=== PATIENT | female | born 1975 | race Two or more races ===

== ENCOUNTER 2024-09-25 01:35 | Inpatient (IN) | payer MEDICAID, OTHER ==
[~2024-09-25] VITALS: Ht 165.1 cm; Wt 87.3 kg
[2024-09-25] MEDS ORDERED: LABETALOL HCL 20 MG/4 ML VL IV ONE (02:00)
--- NOTE | 2024-09-25 02:15 | DVH ---
CHEST RADIOGRAPH Indication: cp Technique: Single frontal view of the chest was obtained COMPARISON: None FINDINGS: Lines and Tubes: None Lungs: Clear Pleura: No effusion. No pneumothorax. Cardiomediastinal contours: Unremarkable Bones: Unremarkable IMPRESSION: 1. No acute disease.
[2024-09-25 02:32] LABS: Basophils # (auto) 0.1 10 ^3/uL (0-0.2); Basophils % (auto) 0.5 % (0.0-2.0); Eosinophils # (auto) 0.1 10 ^3/uL (0-0.8); Eosinophils % (auto) 0.6 % (0.0-7.0); Hematocrit 42.3 % (36.0-46.0); Hemoglobin 14.2 g/dL (12.2-16.2); Mean Corpuscular Hemoglobin 30.9 pg (28.0-32.0); Mean Corpuscular Hgb Conc. 33.6 g/dL (32.0-36.0); Mean Corpuscular Volume 91.8 fL (80.0-100.0); Monocytes # (auto) 0.5 10 ^3/uL (0-1.3); Monocytes % (auto) 4.8 % (0.0-12.0); Neutrophils # (auto) 7.8 10 ^3/uL (1.6-8.6); Neutrophils % (auto) 68.1 % (37.0-80.0); Platelet Count (auto) 307 10^3/uL (140-450); Red Blood Cells 4.61 10^6/uL (4.0-5.20); Red Cell Distribution Width 14.7 % (11.8-14.3); White Blood Cell 11.4 10^3/uL (4.4-10.8)
--- NOTE | 2024-09-25 02:36 | ED.PDOC ---
HPI Comments 49-year-old female complaining of high blood pressure. Patient states she took her blood pressure at home in his 160/104. Says she went to urgent care months back and was prescribed amlodipine 10 mg and lisinopril 20 mg. States she has not have a primary care doctor. She has been taking the medications as prescribed but states she has noticed no significant improvement. States today she started feeling mild/like chest pain as well. Denies any shortness of breath. No headaches today. Nothing makes it better, nothing makes it worse. Chief Complaint: High Blood Pressure Time Seen by MD: 01:41 Reviewed Notes: Nurses Notes Information Source: Patient Mode of Arrival: Ambulatory Severity: Moderate Past Medical History PAST MEDICAL HISTORY: HTN Surgical History: Denies all surgeries DOCUMENT MANAGEMENT TECHNICIAN History: No Pertinent DOCUMENT MANAGEMENT TECHNICIAN History Constitutional: denies: chills, diaphoresis, fatigue, fever, malaise, sweats, weakness, others EENTM: denies: blurred vision, double vision, ear bleeding, ear discharge, ear drainage, ear pain, ear ringing, eye pain, eye redness, hearing loss, mouth pain, mouth swelling, nasal discharge, nose bleeding, nose congestion, nose pain, photophobia, tearing, throat pain, throat swelling, voice changes, others Respiratory: denies: cough, hemoptysis, orthopnea, SOB at rest, shortness of breath, SOB with excertion, stridor, wheezing, others Cardiovascular: reports: chest pain; denies: dizzy spells, diaphoresis, Dyspnea on exertion, edema, irregular heart beat, left arm pain, lightheadedness, palpitations, PND, syncope, others Gastrointestinal: denies: abdomen distended, abdominal pain, blood streaked bowels, constipated, diarrhea, dysphagia, difficulty swallowing, hematemesis, melena, nausea, poor appetite, poor fluid intake, rectal bleeding, rectal pain, vomiting, others Genitourinary: denies: abnormal vagina bleeding, burning, dyspareunia, dysuria, flank pain, frequency, hematuria, incontinence, pain, , vagina discharge, urgency, others Neurological: denies: dizziness, fainting, headache, left sided numbness, left sided weakness, numbness, paresthesia, pre-existing deficit, right sided numbness, right sided weakness, seizure, speech problems, tingling, tremors, weakness, others Musculoskeletal: denies: back pain, gout, joint pain, joint swelling, muscle pain, muscle stiffness, neck pain, others Integumetry: denies: bruises, change in color, change in hair/nails, dryness, laceration, lesions, lumps, rash, wounds, others Allergic/Immunocompromised: denies: Difficulty Healing, Frequent Infections, Hives, Itching, others Hematologic/Lymphatic: denies: anemia, blood clots, easy bleeding, easy bruising, swollen glands, others Physical Exam General Appearance: No Apparent Distress, Normal HEENT: Normal ENT Inspection, Pharynx Normal, TMs Normal Neck: Full Range of Motion, Non-Tender, Normal, Normal Inspection Respiratory: Chest Non-Tender, Lungs Clear, No Accessory Muscle Use, No Respiratory Distress, Normal Breath Sounds Cardiovascular: No Edema, No JVD, No Murmur, No Gallop, Normal Peripheral Pulses, Tachycardia Breast Exam: Deferred Gastrointestinal: No Organomegaly, Non Tender, No Pulsatile Mass, Normal Bowel Sounds, Soft Genitalia: Deferred Pelvic: Deferred Rectal: Deferred Extremities: No calf tenderness, Normal capillary refill, Normal inspection, Normal range of motion, Non-tender, No pedal edema Musculoskeletal : Apperance: Normal Neurologic: Alert, physical optics teacher II-XII nml as Tested, No Motor Deficits, Normal Affect, Normal Mood, No Sensory Deficits Cerebellar Function: Normal Reflexes: Normal Skin: Dry, Normal Color, Warm Lymphatic: No Adenopathy Was a procedure done? Was a procedure done?: No CP Differential Dx Differential Diagnosis: Angina, Anxiety / Panic Attack, Atrial Dysrhythmia, NV, Sinus Tachycardia X-Ray, Labs, Meds, VS Vital Signs Date Time Temp Pulse Resp B/P (MAP) Pulse Ox O2 Delivery O2 Flow Rate FiO2 09/25/24 01:51 124 09/25/24 01:50 98.2 125 18 164/109 (127) 96 98.2 Lab Test 09/25/24 02:13 Range/Units White Blood Count Pending Red Blood Count Pending Hemoglobin Pending Hematocrit Pending Mean Corpuscular Volume Pending Mean Corpuscular Hemoglobin Pending Mean Corpuscular Hemoglobin Concent Pending Red Cell Distribution Width Pending Platelet Count Pending Mean Platelet Volume Pending Neutrophils (%) (Auto) Pending Lymphocytes (%) (Auto) Pending Monocytes (%) (Auto) Pending Basophils (%) (Auto) Pending Neutrophils # (Auto) Pending Lymphocytes # (Auto) Pending Monocytes # (Auto) Pending Sodium Level Pending Potassium Level Pending Chloride Level Pending Carbon Dioxide Level Pending Anion Gap Pending Blood Urea Nitrogen Pending Creatinine Pending Glomerular Filtration Rate Calc Pending BUN/Creatinine Ratio Pending Serum Glucose Pending Calcium Level Pending Troponin I High Sensitivity Pending X-Ray, Labs, Meds, VS Comment Imaging: X-rays and CT scans were reviewed and interpreted by this provider, imaging shows no fractures and no pathological disease. Pending radiology review. Laboratory: Labs reviewed and interpreted by this provider. Patient has prior medical visits reviewed. Med reconciliation performed Vital signs reviewed Patient will be admitted for uncontrolled hypertension and tachycardia Recommend cardiology consult in the morning Time of 1ST Reevaluation: 02:36 Reevaluation 1ST: Unchanged Patient Education/Counseling: Diagnosis, Treatment Family Education/Counseling: Diagnosis, Treatment Assigned to Dr. Reyes Change of Shift?: Yes SEPSIS Sepsis Screen Date sepsis recognized/suspect: Sep 25, 2024 Time Sepsis recognized/suspect: 144 Recent Procedure: No On Antibiotic Therapy: No Respiratory Rate >20: No Heart Rate >90: No Temp<36 C (96.8 F) or >38.3 C: No SBP <90 or MAP <65 mmHG: No New Acute Mental Status Change: No Is the patient on CPAP, BIPAP,: No Physician Orders Complete Blood Count (09/25/24 01:47) Basic Metabolic Panel (09/25/24 01:47) Troponin-I Hs (09/25/24 01:47) Urinalysis (09/25/24 01:47) Chest Xray 1 View (09/25/24 01:47) Electrocardigram (09/25/24 01:47) Troponin-I Hs (09/25/24 02:47) Troponin-I Hs (09/25/24 04:47) Electrocardigram (09/25/24 02:47) Electrocardigram (09/25/24 04:47) Vital Signs Date Time Temp Pulse Resp B/P (MAP) Pulse Ox O2 Delivery O2 Flow Rate FiO2 09/25/24 01:51 124 09/25/24 01:50 98.2 125 18 164/109 (127) 96 98.2 Laboratory Tests Test 09/25/24 02:13 White Blood Count Pending Departure 1 Departure Time of Disposition: 02:34 Impression: Primary Impression: Tachycardia Additional Impression: Hypertensive urgency Disposition: 09 ADMITTED INPATIENT Condition: Stable Discharged With: Self Critical Care Note Critical Care Time?: No Stability Stability form required: No Heart Score Heart Score: Heart Score Response (Comments) Value History Slightly Suspicious 0 EKG Normal 0 Age 45-64 1 Risk Factors No known risk factors 0 Troponin Normal limit 0 Total 1 HEMANT GALLARDO Sep 25, 2024 02:36
[2024-09-25 02:42] LABS: Chloride 104 mmol/L (98-107); Potassium 3.9 mmol/L (3.5-5.1); Sodium 141 mmol/L (136-145)
[2024-09-25 02:43] LABS: Anion Gap 11 (5-15); Calcium 10.2 mg/dL (8.7-10.4); Carbon Dioxide 26 mmol/L (20-31)
[2024-09-25 02:48] LABS: BUN/Creatinine Ratio 27.1 (10.0-20.0); Blood Urea Nitrogen 19 mg/dL (9-23)
[2024-09-25 02:49] LABS: Glucose 136 mg/dL (74-106)
[2024-09-25 03:25] VITALS: PULSE 82; RESP 18; O2SAT 98
[2024-09-25] MEDS: diphenhdrAMINE HCL 50 MG/1 ML VL IV ONE (04:00)
[2024-09-25 04:57] LABS: Urine Bacteria None Seen /hpf (None Seen)
[2024-09-25] MEDS: LISINOPRIL 5 MG TAB PO ONE (05:02)
[2024-09-25 05:12] LABS: Urine Blood 3+ /uL (Negative); Urine Clarity Turbid (Clear); Urine Color Light-Brown (Yellow); Urine Protein, UAD TRACE (Negative); Urine Specific Gravity 1.015 (1.001-1.035); Urine Squamous Epithelial Cell FEW /hpf (<5); Urine Urobilinogen Normal (Negative); Urine WBC 7 /HPF (0-5)
[2024-09-25 05:13] LABS: Protein, Urine 26.3 mg/dL (1-14)
[2024-09-25 05:16] LABS: Creatinine, Urine 48.05 mg/dL (30.0-125.0); Urine Protein/Creatinine Ratio 0.55
[2024-09-25 05:41] VITALS: BP 147/85
--- NOTE | 2024-09-25 05:53 | DVHHPRES ---
History of Present Illness Resident Creating Document: TAYOKAMRONJULIAN RESIDENT History of Present Illness Patient is a 49-year-old female with a past medical history of hypertension presented to the ED with a chief complaint of noticing high blood pressure at home. Patient reported that she was recently diagnosed with a blood pressure reports 6-8 months ago following which she has been on antihypertensive medications and currently he is on lisinopril 20 mg daily and amlodipine 10 mg daily. Today in the morning she noticed her blood pressure of 180/105. Reported of chest pressure in the right side, nonradiating which improved on its own. Patient denies any history of diabetes, no smoking or drug use, no alcohol use. Patient denies any significant family history of coronary artery disease. Initial 12 lead ECG showed sinus tachycardia without any significant ST-T changes, flattening of T-waves in V2 and V3. Troponin levels were within normal limits Review of Systems Review of Systems Patient seen and examined at the bedside Denies headache, blurred vision, chest pain, shortness of breath No other acute complaints Allergies: Uncoded Allergies: NKDA (Allergy, Unknown, 09/25/24) Medications Current Medications Medications Dose Ordered Sig/Ronit Route Start Time Stop Time Status Last Admin Dose Admin Lisinopril 20 mg DAILY PO 09/26/24 10:00 Amlodipine Besylate 10 mg DAILY PO 09/25/24 10:00 Exam Vital Signs Vital Signs Date Time Temp Pulse Resp B/P (MAP) Pulse Ox O2 Delivery O2 Flow Rate FiO2 09/25/24 05:02 146/78 09/25/24 04:46 104 09/25/24 03:25 98.1 18 98 98.1 09/25/24 03:25 Room Air* 0 21 Exam Gen - no pallor, no icterus, no cyanosis, no clubbing, no LAD, no edema . Skin - Patients skin is warm and dry. HEENT - normocephalic, atraumatic, moist mucous membranes. Neck - full ROM, no LAD, no JVD Pulmonary - B/L equal breath sounds, no crackles, no wheezing, no stridor. cardiovascular - regular S1,S2 heard, no added sounds, no murmurs heard. GI - soft, nontender abdomen. no hepatospleenomegaly. Bowel sounds normoactive Neurological - Patient is A/O X 3. Bilateral upper extremity strength 5/5, bilateral lower extremity strength 5/5, no facial droop, normal speech, no tremor, no sensory deficiets. Labs/Xrays Labs Test 09/25/24 04:54 09/25/24 03:30 09/25/24 02:13 Range/Units Urine Color Light-brown Yellow Urine Clarity Turbid H Clear Urine pH 6.0 5.0-9.0 Urine Specific [place] 1.015 1.001-1.035 Urine Protein Trace H Negative Urine Ketones 2+ H Negative Urine Blood 3+ H Negative /uL Urine Nitrite Negative Negative Urine Bilirubin Negative Negative Urine Urobilinogen Normal Negative mg/dL Urine Leukocyte Esterase 2+ Negative /uL Urine RBC 3030 0 - 4 /hpf Urine Microscopic WBC 7 H 0-5 /HPF Urine Squamous Epithelial Cells Few <5 /hpf Urine Bacteria None seen None Seen /hpf Urine Creatinine 48.05 30.0-125.0 mg/dL Urine Protein/Creatinine Ratio 0.55 Urine Glucose Normal Normal mg/dL Urine Total Protein 26.3 H 1-14 mg/dL Troponin I High Sensitivity 4 </=34 ng/L White Blood Count 11.4 H 4.4-10.8 10^3/uL Red Blood Count 4.61 4.0-5.20 10^6/uL Hemoglobin 14.2 12.2-16.2 g/dL Hematocrit 42.3 36.0-46.0 % Mean Corpuscular Volume 91.8 80.0-100.0 fL Mean Corpuscular Hemoglobin 30.9 28.0-32.0 pg Mean Corpuscular Hemoglobin Concent 33.6 32.0-36.0 g/dL Red Cell Distribution Width 14.7 H 11.8-14.3 % Platelet Count 307 140-450 10^3/uL Mean Platelet Volume 8.5 6.9-10.8 fL Neutrophils (%) (Auto) 68.1 37.0-80.0 % Lymphocytes (%) (Auto) 26.0 10.0-50.0 % Monocytes (%) (Auto) 4.8 0.0-12.0 % Eosinophils (%) (Auto) 0.6 0.0-7.0 % Basophils (%) (Auto) 0.5 0.0-2.0 % Neutrophils # (Auto) 7.8 1.6-8.6 10 ^3/uL Lymphocytes # (Auto) 3.0 0.4-5.4 10 ^3/uL Monocytes # (Auto) 0.5 0-1.3 10 ^3/uL Eosinophils # (Auto) 0.1 0-0.8 10 ^3/uL Basophils # (Auto) 0.1 0-0.2 10 ^3/uL Nucleated Red Blood Cells 0.0 % Sodium Level 141 136-145 mmol/L Potassium Level 3.9 3.5-5.1 mmol/L Chloride Level 104 98-107 mmol/L Carbon Dioxide Level 26 20-31 mmol/L Anion Gap 11 5-15 Blood Urea Nitrogen 19 9-23 mg/dL Creatinine 0.70 0.550-1.02 mg/dL Glomerular Filtration Rate Calc 105 >90 mL/min BUN/Creatinine Ratio 27.1 H 10.0-20.0 Serum Glucose 136 H 74-106 mg/dL Calcium Level 10.2 8.7-10.4 mg/dL Assessment/Plan Assessment/Plan Acute chest pain, rule out ACS Hypertensive crisis Uncontrolled hypertension with hypertensive heart disease - reviewed EKG showed no significant ST segment or T-wave changes, troponin levels were within normal limits - continued on lisinopril 20 mg and amlodipine 10 mg daily - echocardiogram pending - urine protein creatinine ratio pending to check for any hypertensive nephropathy PUD prophylaxis: Protonix Goals of care discussed with the patient for over 90 minutes. Full code Time spent: 33 minutes Plan discussed with Dr. Mitchell Plan discussed with: Patient My Orders Orders - CHRIST CR Procedure Category Date Status Time Admit ADMIT 09/25/24 Transmitted 04:37 Amlodipine Tablet PHA 09/25/24 In Process (Norvasc Tablet) 10:00 Echo 2d Mode Cardiac US 09/25/24 Logged DOP 04:37 Cardiac DIET 09/25/24 Transmitted Diet-2gna,Lofat,Lochol Breakfast Lisinopril Tablet PHA 09/26/24 In Process (Zestril Tablet) 10:00 Date of Service: Sep 25, 2024 Billing Provider: RAFAEL MITCHELL MD Common Visit Codes: 45673-BJZVRGC INP/OBS CARE (HIGH) Secondary Visit Codes: 91627-[id number] CARE PLAN 30 MINUTES CHRIST CR RESIDENT Sep 25, 2024 05:53
[2024-09-25] MEDS: PANTOPRAZOLE 40 MG TAB PO SCH (06:00)
[2024-09-25] MEDS ORDERED: ACETAMINOPHEN 500 MG TAB or CAP PO PRN (08:45)
[2024-09-25] MEDS ORDERED: HYDROcodone-ACET 5/325MG TAB PO PRN (08:45)
[2024-09-25] MEDS ORDERED: MORPHINE SULFATE INJ 2 MG/ml SYRG IV PRN (08:45)
[2024-09-25 09:24] LABS: Bilirubin, Direct 0.1 mg/dL (<0.3); Bilirubin, Total 0.6 mg/dL (0.2-1.0); Total Protein 7.9 g/dL (5.7-8.2)
[2024-09-25 09:25] LABS: INR 0.97 (0.9-1.15); Partial Thromboplastin Time 26.5 SEC (24.5-34.5); Prothrombin Time 10.3 sec (9.3-11.8)
[2024-09-25] MEDS ORDERED: MORPHINE SULFATE 4 MG/ML SYR/VIAL IV PRN (09:45)
[2024-09-25 10:02] LABS: Magnesium 2.1 mg/dL (1.6-2.6)
[2024-09-25] MEDS: amLODIPine BESYLATE 5 MG TAB PO SCH (10:05)
[2024-09-25 10:07] VITALS: BP 160/83; PULSE 90; RESP 20; TEMP 98.7; O2SAT 99
[2024-09-25 10:47] LABS: Amphetamine Screen, Urine Neg (NEGATIVE); Barbiturate Scree,Urine Neg (NEGATIVE); Benzodiazephine Screen, Urine Neg (NEGATIVE); Cannabinoid Screen, Urine Neg (NEGATIVE); Cocaine Screen, Urine Neg (NEGATIVE); Opiate Scree,Urine Neg (NEGATIVE); Phencyclidine Screen, Urine Neg (NEGATIVE)
--- NOTE | 2024-09-25 12:35 | ECG ---
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
[2024-09-25 16:06] VITALS: BP 111/67; PULSE 92; RESP 16; TEMP 98.4; O2SAT 98
--- NOTE | 2024-09-25 18:26 | DVHPNRES ---
Progress Note Date Seen: Sep 25, 2024 Resident Creating Document: SHIRA WELSH RESIDENT Medical Necessity Reason Pt with a Central, PICC or Fol: No Subjective Review of Systems Patient is a 49-year-old female with a past medical history of hypertension presented to the ED with a chief complaint of noticing high blood pressure at home. Patient reported that she was recently diagnosed with a blood pressure reports 6-8 months ago following which she has been on antihypertensive medications and currently he is on lisinopril 20 mg daily and amlodipine 10 mg daily. Today in the morning she noticed her blood pressure of 180/105. Reported of chest pressure in the right side, nonradiating which improved on its own. Patient denies any history of diabetes, no smoking or drug use, no alcohol use. Patient denies any significant family history of coronary artery disease. Initial 12 lead ECG showed sinus tachycardia without any significant ST-T changes, flattening of T-waves in V2 and V3. Troponin levels were within normal limits Home medications lisinopril 20, amlodipine 10 Patient seen and examined at the bedside. Denies chest pain. Echocardiogram pending. Objective vital signs Vital Sign Date Time Temp Pulse Resp B/P (MAP) Pulse Ox O2 Delivery O2 Flow Rate FiO2 09/25/24 16:06 98.4 92 16 111/67 (82) 98 98.4 09/25/24 07:58 Room Air* 0 21 medications Current Medications Medications Dose Ordered Sig/Ronit Route Start Time Stop Time Status Last Admin Dose Admin Lisinopril 20 mg DAILY PO 09/26/24 10:00 Amlodipine Besylate 10 mg DAILY PO 09/25/24 10:00 09/25/24 10:05 10 MG Pantoprazole Sodium 40 mg DAILY@0600 PO 09/25/24 06:00 Acetaminophen 500 mg Q4HPRN PRN PO 09/25/24 08:45 Acetaminophen/ Hydrocodone Bitart 1 tab Q4HPRN PRN PO 09/25/24 08:45 Morphine Sulfate 1 mg Q4HPRN PRN IV 09/25/24 08:45 UNV Morphine Sulfate 1 mg Q4HPRN PRN IV 09/25/24 09:45 Examination Patient lying in bed, in no acute distress General: Well-built, afebrile, palor, mucosae are moist Cardiovascular: Regular S1 and S2. No murmurs, gallops or rubs. No JVD elevation. No pedal edema Respiratory: Normal B/L air entry on room air. Clear lung sounds on auscultation Abdomen: Soft, nontender, nondistended, normoactive bowel sounds, no rebound tenderness, no organomegaly, no masses Genitourinary: Deferred MSK/skin: Mobilizes 4 limbs. Skin is dry and warm Neurological: No motor, no sensitive deficits, normal speech. Pupils are isocoric and reactive. Psych/Mental Status: A/Ox3 laboratory and microbiology Laboratory Tests 09/25/24 02:13 Test 09/25/24 02:13 Range/Units Serum Glucose 136 H 74-106 mg/dL Labs and/or images reviewed: Labs reviewed by me, Image(s) reviewed by me Problem List/Assessment/Plan Problem List/Assessment/Plan Acute chest pain, rule out ACS Hypertensive crisis Uncontrolled hypertension with hypertensive heart disease - reviewed EKG showed no significant ST segment or T-wave changes, troponin levels were within normal limits - continued on lisinopril 20 mg and amlodipine 10 mg daily - echocardiogram pending - urine protein creatinine ratio unremarkable Sepsis secondary to Acute cystitis IV ceftriaxone 1 g daily And bacteria culture ordered ? Thyroid disease Follow up with free T4 PUD prophylaxis: Protonix Plan discussed with patient, brother at bedside in which all questions have been answered Goals of care discussed for more than 20 minutes, full code status Case discussed with Dr. Ontiveros Plan discussed with: Patient My Orders My Orders Orders - SHIRA WELSH Procedure Category Date Status Time Acetaminophen Tab Or PHA 09/25/24 In Process Cap (Tylenol Tablet 08:45 Hydrocodone-Acet PHA 09/25/24 In Process 5/325mg Tab ([place] 08:45 Morphine Sulfate PHA 09/25/24 In Process Injection 09:45 SHIRA WELSH Sep 25, 2024 18:26
[2024-09-25] MEDS: ERGOCALCIFEROL 50,000 UNIT(1.25MG) CAP PO SCH (18:30)
[2024-09-25] MEDS: cefTRIAXone 1GM/50ML D5W 50 ML IV ONE (18:38)
[2024-09-25 21:00] VITALS: BP 126/73; PULSE 68; RESP 16; TEMP 98.3; O2SAT 98
[2024-09-26] VITALS (8 sets, daily range): BP systolic 98–129; BP diastolic 59–81; PULSE 58–76; RESP 13–18; TEMP 97.6–98.3; O2SAT 94–100
[2024-09-26 04:31] LABS: Calcium 9.1 mg/dL (8.7-10.4); Chloride 105 mmol/L (98-107); Potassium 3.7 mmol/L (3.5-5.1); Sodium 141 mmol/L (136-145)
[2024-09-26 04:32] LABS: Anion Gap 12 (5-15); Carbon Dioxide 24 mmol/L (20-31)
[2024-09-26 04:34] LABS: Basophils # (auto) 0 10 ^3/uL (0-0.2); Basophils % (auto) 0.3 % (0.0-2.0); Eosinophils # (auto) 0.1 10 ^3/uL (0-0.8); Eosinophils % (auto) 1.3 % (0.0-7.0); Hematocrit 40.2 % (36.0-46.0); Hemoglobin 13.7 g/dL (12.2-16.2); Lymphocytes # (auto) 2.9 10 ^3/uL (0.4-5.4); Lymphocytes % (auto) 32.7 % (10.0-50.0); Mean Corpuscular Hemoglobin 31.6 pg (28.0-32.0); Mean Corpuscular Hgb Conc. 34.1 g/dL (32.0-36.0); Mean Corpuscular Volume 92.8 fL (80.0-100.0); Monocytes # (auto) 0.6 10 ^3/uL (0-1.3); Monocytes % (auto) 6.5 % (0.0-12.0); Neutrophils # (auto) 5.2 10 ^3/uL (1.6-8.6); Neutrophils % (auto) 59.2 % (37.0-80.0); Nucleated Red Blood Cells % 0.1 %; Platelet Count (auto) 293 10^3/uL (140-450); Red Blood Cells 4.34 10^6/uL (4.0-5.20); Red Cell Distribution Width 14.9 % (11.8-14.3); White Blood Cell 8.9 10^3/uL (4.4-10.8)
[2024-09-26 04:37] LABS: BUN/Creatinine Ratio 20.4 (10.0-20.0); Blood Urea Nitrogen 20 mg/dL (9-23)
--- NOTE | 2024-09-26 04:39 | ECG ---
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
--- NOTE | 2024-09-26 04:39 | ECG ---
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
[2024-09-26 04:45] LABS: Glucose 110 mg/dL (74-106)
[2024-09-26] MEDS: cefTRIAXone 1GM/50ML D5W 50 ML IV SCH (08:27)
[2024-09-26] MEDS: ENOXAPARIN SOD 40 MG/0.4 ML SYRINGE SC SCH (09:50)
[2024-09-26] MEDS: LISINOPRIL 20 MG TAB PO SCH (09:53)
--- NOTE | 2024-09-26 14:13 | DVHPNRES ---
Progress Note Date Seen: Sep 26, 2024 Resident Creating Document: SHIRA WELSH RESIDENT Medical Necessity Reason Pt with a Central, PICC or Fol: No Subjective Review of Systems Patient is a 49-year-old female with a past medical history of hypertension presented to the ED with a chief complaint of noticing high blood pressure at home. Patient reported that she was recently diagnosed with a blood pressure reports 6-8 months ago following which she has been on antihypertensive medications and currently he is on lisinopril 20 mg daily and amlodipine 10 mg daily. Today in the morning she noticed her blood pressure of 180/105. Reported of chest pressure in the right side, nonradiating which improved on its own. Patient denies any history of diabetes, no smoking or drug use, no alcohol use. Patient denies any significant family history of coronary artery disease. Initial 12 lead ECG showed sinus tachycardia without any significant ST-T changes, flattening of T-waves in V2 and V3. Troponin levels were within normal limits Home medications lisinopril 20, amlodipine 10 09/25 - Patient seen and examined at the bedside. Denies chest pain. Echocardiogram pending. 09/26 - patient seen and examined at bedside. WBC trending down, cystitis symptoms resolving. Repeat EKG ordered to rule out any new ST changes. Objective vital signs Vital Sign Date Time Temp Pulse Resp B/P (MAP) Pulse Ox O2 Delivery O2 Flow Rate FiO2 09/26/24 12:36 97.6 73 18 122/70 (87) 100 97.6 09/25/24 07:58 Room Air* 0 21 Total Intake and Output 09/25/24 09/25/24 09/26/24 15:00 23:00 07:00 Intake Total 400 ml Balance 400 ml medications Current Medications Medications Dose Ordered Sig/Ronit Route Start Time Stop Time Status Last Admin Dose Admin Lisinopril 20 mg DAILY PO 09/26/24 10:00 09/26/24 09:53 20 MG Amlodipine Besylate 10 mg DAILY PO 09/25/24 10:00 09/26/24 09:53 10 MG Pantoprazole Sodium 40 mg DAILY@0600 PO 09/25/24 06:00 09/26/24 05:19 40 MG Acetaminophen 500 mg Q4HPRN PRN PO 09/25/24 08:45 Acetaminophen/ Hydrocodone Bitart 1 tab Q4HPRN PRN PO 09/25/24 08:45 Morphine Sulfate 1 mg Q4HPRN PRN IV 09/25/24 08:45 UNV Morphine Sulfate 1 mg Q4HPRN PRN IV 09/25/24 09:45 Ceftriaxone Sodium 50 ml @ 100 mls/hr DAILY@09 IV 09/26/24 09:00 09/26/24 08:27 100 MLS/HR Enoxaparin Sodium 40 mg DAILY SC 09/26/24 10:00 09/26/24 09:50 40 MG Ergocalciferol 50,000 unit Q7D PO 09/25/24 18:30 Examination Patient lying in bed, in no acute distress General: Well-built, afebrile, palor, mucosae are moist Cardiovascular: Regular S1 and S2. No murmurs, gallops or rubs. No JVD elevation. No pedal edema Respiratory: Normal B/L air entry on room air. Clear lung sounds on auscultation Abdomen: Soft, nontender, nondistended, normoactive bowel sounds, no rebound tenderness, no organomegaly, no masses Genitourinary: Deferred MSK/skin: Mobilizes 4 limbs. Skin is dry and warm Neurological: No motor, no sensitive deficits, normal speech. Pupils are isocoric and reactive. Psych/Mental Status: A/Ox3 laboratory and microbiology Laboratory Tests 09/26/24 03:36 Test 09/26/24 03:36 Range/Units Serum Glucose 110 H 74-106 mg/dL Labs and/or images reviewed: Labs reviewed by me, Image(s) reviewed by me Problem List/Assessment/Plan Problem List/Assessment/Plan Acute chest pain, rule out ACS Hypertensive crisis Uncontrolled hypertension with hypertensive heart disease - reviewed EKG showed no significant ST segment or T-wave changes, troponin levels were within normal limits - continued on lisinopril 20 mg and amlodipine 10 mg daily - echocardiogram pending - urine protein creatinine ratio unremarkable Repeat EKG ordered to rule out any new ST changes. Sepsis secondary to Acute cystitis IV ceftriaxone 1 g daily And bacteria culture ordered Ruled out Thyroid disease Normal free T4 PUD prophylaxis: Protonix Plan discussed with patient, brother at bedside in which all questions have been answered Goals of care discussed for more than 20 minutes, full code status Case discussed with Dr. Ontiveros Plan discussed with: Patient My Orders My Orders Orders - ALI,SHIRA RESIDENT Procedure Category Date Status Time Ceftriaxone 1gm/50ml PHA 09/26/24 In Process D5w (Rocephin) 09:00 Blood Culture DESEAN 09/25/24 In Process 18:23 Urine Bacterial DESEAN 09/25/24 In Process Culture 18:23 Enoxaparin Sodium PHA 09/26/24 In Process (Lovenox) 10:00 Ergocalciferol PHA 09/25/24 In Process (Vitamin D 50,000 18:30 SHIRA WELSH Sep 26, 2024 14:13
[2024-09-26] MEDS ORDERED: AMLO1TAB22 PO (15:03)
[2024-09-26] MEDS ORDERED: LISI20TA56 PO (15:04)
[2024-09-27 01:00] VITALS: BP 116/72; PULSE 67; RESP 16; TEMP 97.6; O2SAT 92
[2024-09-27 05:00] VITALS: BP 103/61; PULSE 64; RESP 16; TEMP 97; O2SAT 97
[2024-09-27 08:00] VITALS: PULSE 65; PULSE 74; RESP 18; O2SAT 99
[2024-09-27 09:21] VITALS: BP 111/70; PULSE 74; RESP 18; TEMP 98.5; O2SAT 93
--- NOTE | 2024-09-27 10:20 | DVHSR ---
APPROVED REPORT EXAM: Two-dimensional and M-mode echocardiogram with Doppler and color Doppler. Blood Pressure: 163/104 mmHg INDICATION Chest Pain Hypertension RISK FACTORS Height: 65, Weight: 151 DIMENSIONS LVDd3.9 (3.8-5.7cm)LA (2D)3.4 (1.9-4.0cm)Aortic Root3.1 (2.0-3.7cm) LVDs2.6 (2.5-4.0cm)LA (MM) (1.9-4.0cm)Aortic Cusp Exc1.8 (1.5-2.0cm) EF (%) 61.0 (55-70%)Rt. Atrium3.2 (1.9-4.0cm)Asc. Aorta cm IVSd1.3 (0.7-1.1cm)RV (D) (1.8-2.4cm) PWd1.2 (0.7-1.1cm) Mitral Valve MitralMitral Stenosis E wave0.72m/sMV Mean GR.mmHg A wave0.85m/sMV Peak GR.mmHg E/A ratio0.82D MVAcm2 DECEL [id number] 1/2 Msxd60zt IVRTmsDop MVA4.97cm2 Aortic Valve Aortic ValveAortic Stenosis V11.26m/Citlaly Mean GR.6mmHg V21.62m/Citlaly Peak GR.10mmHg LVOT Diameter1.8 (1.8-2.4cm)Doppler AVA1.98cm2 Pulmonic Valve V20.80m/s Conclusion Sinus rhythm. Concentric LVH. Normal chamber sizes. Valves are normal. EF of 60% with normal RV function. Dopplers unremarkable. No pericardial effusion masses or vegetations.
[2024-09-27] MEDS ORDERED: CHOL500021 OR (12:50)
[2024-09-27] MEDS ORDERED: AUG875T PO (12:50)
[2024-09-27 13:11] VITALS: BP 116/59; PULSE 64; RESP 18; TEMP 97.9; O2SAT 97
--- NOTE | 2024-09-27 13:38 | ECG ---
[facility] Test Date: 2024-09-26 Test Time: 14:40:14 Pat Name: EUFEMIA ZIEGLER Department: [facility] ED Patient ID: [facility]-[id number] Room: 0249 Gender: F Scowman: Anisa Perry RN : 1975 Requested By: SHIRA WELSH Order Number: [id number] Reading MD: Measurements Intervals [place]ler Rate: 62 P: 56 IN: 149 QRS: -35 QRSD: 85 T: -5 QT: 438 QTc: 445 Interpretive Statements Sinus rhythm Left axis deviation Low voltage, precordial leads Borderline T abnormalities, diffuse leads Please click the below link to view image of tracing.
--- NOTE | 2024-09-27 14:35 | DVHDSRES ---
Discharge Summary Date of Admission Resident Creating Document: SHIRA WELSH RESIDENT Sep 25, 2024 at 04:37 Date of Discharge: Sep 27, 2024 Labs/Diagnostic Data: Laboratory Results Test 09/26/24 03:36 09/25/24 08:57 09/25/24 05:48 09/25/24 04:54 White Blood Count 8.9 10^3/uL (4.4-10.8) Red Blood Count 4.34 10^6/uL (4.0-5.20) Hemoglobin 13.7 g/dL (12.2-16.2) Hematocrit 40.2 % (36.0-46.0) Mean Corpuscular Volume 92.8 fL (80.0-100.0) Mean Corpuscular Hemoglobin 31.6 pg (28.0-32.0) Mean Corpuscular Hemoglobin Concent 34.1 g/dL (32.0-36.0) Red Cell Distribution Width 14.9 % (11.8-14.3) Platelet Count 293 10^3/uL (140-450) Mean Platelet Volume 8.4 fL (6.9-10.8) Neutrophils (%) (Auto) 59.2 % (37.0-80.0) Lymphocytes (%) (Auto) 32.7 % (10.0-50.0) Monocytes (%) (Auto) 6.5 % (0.0-12.0) Eosinophils (%) (Auto) 1.3 % (0.0-7.0) Basophils (%) (Auto) 0.3 % (0.0-2.0) Neutrophils # (Auto) 5.2 10 ^3/uL (1.6-8.6) Lymphocytes # (Auto) 2.9 10 ^3/uL (0.4-5.4) Monocytes # (Auto) 0.6 10 ^3/uL (0-1.3) Eosinophils # (Auto) 0.1 10 ^3/uL (0-0.8) Basophils # (Auto) 0 10 ^3/uL (0-0.2) Nucleated Red Blood Cells 0.1 % Sodium Level 141 mmol/L (136-145) Potassium Level 3.7 mmol/L (3.5-5.1) Chloride Level 105 mmol/L (98-107) Carbon Dioxide Level 24 mmol/L (20-31) Anion Gap 12 (5-15) Blood Urea Nitrogen 20 mg/dL (9-23) Creatinine 0.98 mg/dL (0.550-1.02) Glomerular Filtration Rate Calc 70 mL/min (>90) BUN/Creatinine Ratio 20.4 (10.0-20.0) Serum Glucose 110 mg/dL (74-106) Calcium Level 9.1 mg/dL (8.7-10.4) Prothrombin Time 10.3 sec (9.3-11.8) Prothrombin Time INR 0.97 (0.9-1.15) Activated Partial Thromboplast Time 26.5 SEC (24.5-34.5) Free Thyroxine (T4) Calculated 1.04 ng/dL (0.89-1.76) Magnesium Level 2.1 mg/dL (1.6-2.6) Total Bilirubin 0.6 mg/dL (0.2-1.0) Direct Bilirubin 0.1 mg/dL (<0.3) Aspartate Amino Transferase (AST) 22 U/L (<34) Alanine Aminotransferase (ALT) 32 U/L (7-40) Alkaline Phosphatase 53 U/L (46-116) Troponin I High Sensitivity 4 ng/L (</=34) Total Protein 7.9 g/dL (5.7-8.2) Albumin 5.0 g/dL (3.2-4.8) Thyroid Stimulating Hormone (TSH) 9.58 uIU/mL (0.55-4.78) Urine Color Light-brown (Yellow) Urine Clarity Turbid (Clear) Urine pH 6.0 (5.0-9.0) Urine Specific [place] 1.015 (1.001-1.035) Urine Protein Trace (Negative) Urine Ketones 2+ (Negative) Urine Blood 3+ /uL (Negative) Urine Nitrite Negative (Negative) Urine Bilirubin Negative (Negative) Urine Urobilinogen Normal mg/dL (Negative) Urine Leukocyte Esterase 2+ /uL (Negative) Urine RBC 3030 /hpf (0 - 4) Urine Microscopic WBC 7 /HPF (0-5) Urine Squamous Epithelial Cells Few /hpf (<5) Urine Bacteria None seen /hpf (None Seen) Urine Creatinine 48.05 mg/dL (30.0-125.0) Urine Protein/Creatinine Ratio 0.55 Urine Glucose Normal mg/dL (Normal) Urine Total Protein 26.3 mg/dL (1-14) Urine Opiates Screen Neg (NEGATIVE) Urine Fentanyl Screen Neg (NEGATIVE) Urine Barbiturates Screen Neg (NEGATIVE) Urine Phencyclidine Screen Neg (NEGATIVE) Urine Amphetamines Screen Neg (NEGATIVE) Urine Benzodiazepines Screen Neg (NEGATIVE) Urine Cocaine Screen Neg (NEGATIVE) Urine Cannabinoids Screen Neg (NEGATIVE) Test 09/25/24 02:13 Hemoglobin A1c 5.2 % A1C (<5.7) Vitamin B12 Level 1159 pg/mL (211-911) Vitamin D 25-Hydroxy 30.4 ng/mL (30.0-100) Other Laboratory Tests 09/26/24 03:36 Brief Hx & Hospital Course: Patient is a 49-year-old female with a past medical history of hypertension presented to the ED with a chief complaint of noticing high blood pressure at home. Patient reported that she was recently diagnosed with a blood pressure reports 6-8 months ago following which she has been on antihypertensive medications and currently he is on lisinopril 20 mg daily and amlodipine 10 mg daily. Today in the morning she noticed her blood pressure of 180/105. Reported of chest pressure in the right side, nonradiating which improved on its own. Patient denies any history of diabetes, no smoking or drug use, no alcohol use. Patient denies any significant family history of coronary artery disease. Initial 12 lead ECG showed sinus tachycardia without any significant ST-T changes, flattening of T-waves in V2 and V3. Troponin levels were within normal limits Home medications lisinopril 20, amlodipine 10 During the hospitalization, reviewed EKG showed no significant ST segment or T- wave changes, troponin levels were within normal limits. Echocardiogram was completed which showed sinus rhythm, concentric LVH, EF 60% with normal RV function. No pericardial effusion masses or vegetation. Troponin unremarkable. Repeat EKG showed normal sinus rhythm. ACS was ruled out. Given uncontrolled blood pressure, lisinopril and amlodipine were resumed. Urine protein/creatinine ratio was unremarkable. Patient had acute sepsis due to cystitis and was started on IV ceftriaxone which she received for 3 days. Urine bacterial culture showed Gram-negative rods preliminary. Discharge plan: Tablet Augmentin 875 mg b.i.d. for next 5 days Follow up with primary care physician Patient agreed to discharge planning. All questions and concerns answered. Consults/Reason for consult ORDERING PHYSICIAN: HEMANT GALLARDO PROCEDURE(s): CXR1 - CHEST XRAY 1 VIEW REASON: cp ORDER NUMBER(s): [id number], ACCESSION NUMBER(s): [id number] CHEST RADIOGRAPH Indication: cp Technique: Single frontal view of the chest was obtained COMPARISON: None FINDINGS: Lines and Tubes: None Lungs: Clear Pleura: No effusion. No pneumothorax. Cardiomediastinal contours: Unremarkable Bones: Unremarkable IMPRESSION: 1. No acute disease. ATED BY: AURELIO OVALLE MD DICTATED DATE/TIME: 09/25/24212 SIGNED BY: AURELIO OVALLE MD SIGNED DATE/TIME: 09/25/24212 Condition at Discharge: Stable Final Diagnosis/Problems List Acute chest pain, likely musculoskeletal ruled out ACS Sepsis due to cystitis Uncontrolled hypertension with hypertensive heart disease Discharge Disposition: Home Discharge Instruct/Medications Diet: Cardiac 2g Na,low cholest Activity: Light activity Follow Up/Referral: Follow up with PCP in 7 days Medications: Augmentin twice daily 5 days Resume home meds Discharge Statement: "Patient was advised to return to the ER or call 911 if any headaches, dizziness, shortness of breath, chest pain, abdominal pain, bleeding, fevers, or worsening of medical condition. Patient was counseled about treatment plan, medications, possible side effects, patientverbalized understanding. All questions were answered to the best of my ability. This discharge took greater then 30 minutes in planning, reviewing documentation, counseling the patient, and discussing with other team members." ASSESSMENT ASSESSMENT Assessment Acute chest pain, likely musculoskeletal ruled out ACS Sepsis due to cystitis Uncontrolled hypertension with hypertensive heart disease SHIRA WELSH RESIDENT Sep 27, 2024 14:35
[2024-09-27 15:00] VITALS: BP 116/59; PULSE 64; RESP 18; TEMP 97.9; O2SAT 97
== END 2024-09-27 16:45 | disposition home or self-care (01) | DRG 720 ==
LOC: ER 01:35 → OVERFLOW 04:37 → TELE-EAST 09-26 15:47 → EAST 09-27 07:59
PROVIDERS: ADMIT Student in an Organized Health Care Education/Training Program; ATTEND Student in an Organized Health Care Education/Training Program
DX: A41.9 Sepsis, unspecified organism (principal); I11.9 Hypertensive heart disease without heart failure; I16.9 Hypertensive crisis, unspecified; N30.00 Acute cystitis without hematuria; Z79.899 Other long term (current) drug therapy
CPT/HCPCS: 36415; 71045; 80048; 80076; 80307; 81001; 82306; 82570; 82607; 83036; 83735; 84156; 84439; 84443; 84484; 85025; 85610; 85730; 87040; 87086; 87088; 87186; 93005; 93306; 96365; 96375; G0378